=== PATIENT | female | born 1950 | race Caucasian/White ===

== ENCOUNTER 2018-03-15 10:15 | Emergency (ER) | payer OTHER, SELFPAY ==
[2018-03-15 10:20] VITALS: BP 149/78; PULSE 81; RESP 20; TEMP 36.4; O2SAT 98
[2018-03-15 10:25] VITALS: BP 142/82; PULSE 81; RESP 16; TEMP 36.8; O2SAT 96
--- NOTE | 2018-03-15 10:26 | DI.CT.S_ITS ---
PROCEDURE: CT FACIAL BONES WO CON INDICATIONS: Fall down stairs TECHNIQUE: Noncontrast 2.5 mm thick axial images acquired from the mandible through the frontal sinuses, with coronal and sagittal reformatting. For radiation dose reduction, the following was used: automated exposure control, adjustment of mA and/or kV according to patient size. COMPARISON: None. FINDINGS: Image quality: Excellent. Bones and teeth: Orbital rabago are intact. Sinus rabago show no fracture or deformity. The mildly displaced nasal bone fracture. Visualized portions of the mandible demonstrate no fractures or subluxation. Zygomatic arches are intact. Pterygoid plates are intact. Moderately displaced fracture of the odontoid process of C2. Mildly displaced fracture of the midline anterior arch of C1. Minimally displaced fracture of the right posterior C1 arch. Mildly displaced fracture of the left posterolateral C1 arch. Visualized portions of the skull base and auditory canals are intact. Sinuses: Paranasal sinuses are aerated, without fluid levels, mucosal thickening, or mucoceles. Mastoid air cells are aerated. Soft tissues: Edema surrounding the nasal bone fracture is present with surrounding soft tissue gas. No enlarged lymph nodes. No soft tissue lacerations or debris. Vascular: Visualized vascular structures appear normal in the absence of contrast. Bony vascular foramina and canals are intact. IMPRESSION: 1. Nasal bone fracture with surrounding soft tissue gas. 2. C1 and C2 fractures. 3. Findings discussed with Dr. Whitaker on 03.15.18 at 1106 hrs. Dictated by: Eddie Holder M.D. on 03/15/2018 at 11:00 Approved by: Eddie Holder M.D. on 03/15/2018 at 11:06
--- NOTE | 2018-03-15 10:26 | DI.CT.S_ITS ---
PROCEDURE: CT HEAD/BRAIN WO CON INDICATIONS: Fall down stairs. Head pain. TECHNIQUE: Noncontrast 4.5 mm thick angled axial sections acquired from the foramen magnum to the vertex, with coronal and sagittal reformats. For radiation dose reduction, the following was used: automated exposure control, adjustment of mA and/or kV according to patient size. COMPARISON: None. FINDINGS: Image quality: Excellent. CSF spaces: Basal cisterns are patent. No extra-axial fluid collections. The ventricles are symmetric in size and shape. Brain: No intracranial bleeds or masses. There is cerebral volume loss for age, with resultant ventricular and sulcal prominence. There are periventricular and deep white matter chronic small vessel ischemic changes. There is intracranial internal carotid artery atherosclerosis. Skull and face: Calvarium and visualized facial bones appear intact, without suspicious lesions. Fractures of the anterior, right, and left aspects of the C1 arch are present. Sinuses: Visualized sinuses and mastoids are clear. IMPRESSION: 1. No acute intracranial abnormality. 2. C1 fractures. 3. Findings discussed with on 03.15.18 at 1106 hrs. Dictated by: Eddie Holder M.D. on 03/15/2018 at 11:07 Approved by: Eddie Holder M.D. on 03/15/2018 at 11:08
--- NOTE | 2018-03-15 10:27 | DI.CT.S_ITS ---
PROCEDURE: CT CERVICAL SPINE WO CON INDICATIONS: Fall down stairs. TECHNIQUE: Noncontrast 3 mm thick sections acquired from the skull base to the T4 level. Sagittal and coronal reformats were then constructed. For radiation dose reduction, the following was used: automated exposure control, adjustment of mA and/or kV according to patient size. COMPARISON: None. FINDINGS: Image quality: Excellent. Bones: There is a moderately displaced fracture of the odontoid process of C2, which demonstrates mild posterior angulation. There is a mildly displaced fracture of the anterior midline C1 arch. There are mildly displaced fractures of the right and left posterolateral C1 arches. Multilevel disc space narrowing and facet hypertrophy are present. Multilevel endplate osteophytes are present. Ill-defined sclerosis within the medial right clavicle. Irregularity of the right anterior first rib is present. There is an exophytic sclerotic focus protruding medially and from the right anterolateral fourth rib measuring 13 mm. Soft tissues: Prevertebral soft tissues are normal in thickness. No paravertebral hematomas. No apical pneumothoraces. 43 mm diameter masslike density within the right upper lobe IMPRESSION: 1. C1 and C2 fractures as described above. Findings were discussed with Dr. Whitaker on 03.15.18 at 1106 hrs. 2. Right upper lobe pulmonary density, possibly indicating neoplasm. PET/CT examination is recommended for further assessment. 3. Bony sclerotic foci as described above, possibly indicating metastatic disease versus sequelae of prior injury versus radiation. Dictated by: Eddie Holder M.D. on 03/15/2018 at 11:08 Approved by: Eddie Holder M.D. on 03/15/2018 at 11:13
[2018-03-15 10:45] VITALS: BP 150/63; PULSE 83; RESP 18; O2SAT 94
--- NOTE | 2018-03-15 10:48 | ED.FALL ---
HPI - Fall General Chief Complaint: Trauma Stated Complaint: FELL,FACE INJURY Time Seen by Provider: 03/15/18 10:24 Source: family Mode of arrival: wheelchair History of Present Illness HPI Narrative: Patient is a 67-year-old female here in surrounded by family. She is complaining of neck pain. She was walking downstairs however she stopped and turned to look up the stairs she then slipped falling up the stairs falling forward hitting her nose. She has obvious laceration on her nose. There was no loss of consciousness. She is moving all of her extremities. She has not been vomiting. All but complaining of MD complaint: fall Related Data Allergies Allergy/AdvReac Type Severity Reaction Status Date / Time No Known Drug Allergies Allergy Verified 03/15/18 11:40 Review of Systems Review of Systems All systems reviewed & are unremarkable except as noted in HPI and below Constitutional Denies chills, Denies fever(s), Denies lethargy and Denies weakness Eyes Denies change in vision, Denies eye discharge, Denies irritation and Denies loss of vision ENT Ears, Nose, Mouth, and Throat: Reports facial pain, Reports epistaxis, Denies throat swelling and Denies tongue swelling Cardiovascular Denies chest pain, Denies irregular heart rhythm, Denies lightheadedness, Denies palpitations, Denies dyspnea, Denies dyspnea on exertion and Denies orthopnea Respiratory Denies cough, Denies dyspnea, Denies dyspnea on exertion and Denies wheezing Musculoskeletal Denies back pain, Denies muscle weakness, Denies numbness and Denies tingling Integumentary/Breasts Comments: +Laceration Neurologic Reports system reviewed and no additional complaints, except as docu, Denies loss of vision, Denies numbness, Denies tingling, Denies weakness and Denies other (LOC) Endocrine Denies palpitations Allergic/Immunologic Denies throat swelling, Denies tongue swelling and Denies wheezing Exam Initial Vital Signs Initial Vital Signs: Vital Signs Temperature 97.5 F L 03/15/18 10:20 Pulse Rate 81 03/15/18 10:20 Respiratory Rate 20 03/15/18 10:20 Blood Pressure 149/78 H 03/15/18 10:20 Pulse Oximetry 98 03/15/18 10:20 Const General: acute distress (in pain) and anxious HENMT Head: normal to inspection and normocephalic Nose: other (Nasal swelling, nasal laceration measuring 1 cm) Eyes General: appearance normal, both eyes and all related structures Pupils: PERRL EOM: EOM intact bilaterally Neck Neck: trachea midline and tender (midline. collar placed in ED) Resp Effort & Inspection: normal respiratory effort and able to speak in complete sentences Auscultation: clear to auscultation bilaterally Cardio Rate: regular rate Rhythm: regular rhythm Heart Sounds: no click, no gallops, murmur systolic and no rubs Pulses: normal peripheral pulses GI Inspection: non-distended Palpation: soft, no hepatosplenomegaly, No guarding, No pulsatile mass and No tender Auscultation: normal bowel sounds Back/Spine/Pelvis Back: normal to inspection Cervical Spine: collar present (in ED), cervical muscular tenderness (and midline tenderness), No step off deformity and cervical ROM abnormal Skin Lesions: no lesions Trauma: laceration (nose) Neuro General: alert, oriented x3, gait normal and no focal motor deficits Speech: speech normal Motor: muscle tone normal throughout and strength 5/5 throughout Sensory Exam: no sensory deficits noted Extrem General: full ROM, no clubbing, cyanosis or edema, no pedal edema and no calf tenderness Right upper extremity: normal to inspection Left upper extremity: normal to inspection Right lower extremity: normal to inspection Left lower extremity: normal to inspection [facility] Medical History Hypertension (Acute) Social History Smoking Status: Never smoker Procedures Laceration Repair Laceration 1: Site: face (Nose) Size (cm): 1 Description: linear Depth: simple, single layer Local Anesthetic: lidocaine 2% and with epi Amount of anesthesia used (mL): 3 Pre-repair: wound explored and irrigated extensively Skin layer closed with: nylon Size (cm): 5-0 Number of sutures: 2 Technique: simple, interrupted Course Orders Ordered: ED Orders 03/15/18 10:26 CT facial bones wo con Stat CT head/brain wo con Stat 03/15/18 10:27 CT cervical spine wo con Stat 03/15/18 11:55 Complete Blood Count AUTO DIFF Stat Comprehensive Metabolic Panel Stat Partial Thromboplastin Time Stat Prothrombin Time INR Stat Discontinued Medications Hydromorphone HCl (Dilaudid) 0.5 mg IV NOW ONE Stop: 03/15/18 13:05 Last Admin: 03/15/18 13:11 Dose: 0.5 mg Morphine Sulfate (Morphine) 2 mg IV NOW ONE Stop: 03/15/18 11:10 Last Admin: 03/15/18 11:41 Dose: 2 mg Morphine Sulfate (Morphine Sulfate) 2 mg IV NOW ONE Stop: 03/15/18 12:29 Last Admin: 03/15/18 12:28 Dose: 2 mg Ondansetron HCl (Zofran) 4 mg IV NOW ONE Stop: 03/15/18 11:38 Last Admin: 03/15/18 11:41 Dose: 4 mg Vital Signs - 8 hr 03/15/18 10:20 03/15/18 10:25 03/15/18 10:45 Temperature 97.5 F L 98.3 F Pulse Rate 81 81 83 Respiratory Rate 20 16 18 Blood Pressure 149/78 H Blood Pressure [Left Arm] 142/82 H 150/63 H Pulse Oximetry 98 96 94 03/15/18 11:05 03/15/18 12:08 03/15/18 12:38 Temperature Pulse Rate 77 81 81 Respiratory Rate 17 18 16 Blood Pressure Blood Pressure [Left Arm] 155/68 H 142/68 H 142/68 H Pulse Oximetry 100 97 95 MDM - Fall Medical Records Attestation: I reviewed the patient's medical records. Lab Data Result diagrams: 03/15/18 11:55 03/15/18 11:55 Lab Results 03/15/18 03/15/18 03/15/18 Range/Units 11:55 11:55 11:55 WBC 13.9 H (4.5-11.0) X10^3/uL RBC 4.69 (4.0-5.2) X10^6/uL Hgb 13.4 (12.0-16.0) g/dL Hct 40.6 (36-46) % MCV 86.5 (80-100) fL MCH 28.5 (26-34) PG MCHC 33.0 (30-36) % RDW 15.4 H (11.6-14.8) % Plt Count 304 (150-400) X10^3/uL Neut % (Auto) 86.9 H (50-75) % Lymph % (Auto) 8.5 L (25-40) % Lee % (Auto) 3.3 (3-14) % Eos % (Auto) 0.7 L (2-4) % Baso % (Auto) 0.6 (0-2) % Neut # (Auto) 55055 H (7543-0920) /uL PT 10.5 (10.1-12.7) SECONDS INR 1.0 (0.9-1.3) APTT 33 (26.4-36.2) SECONDS Sodium 139 (137-145) mmol/L Potassium 4.8 (3.4-5.1) mmol/L Chloride 101 (98-107) mmol/L Carbon Dioxide 28 (22-32) mmol/L BUN 21 H (7-17) mg/dL Creatinine 0.70 (0.52-1.04) mg/dL Estimated GFR > 60.0 (>60) mL/min BUN/Creatinine Ratio 30.0 H (6-22) Glucose 166 H (80-110) mg/dL Calcium 9.1 (8.4-10.2) mg/dL Total Bilirubin 0.7 (0.2-1.3) mg/dL AST 45 H (14-36) IU/L ALT 84 H (9-52) IU/L Alkaline Phosphatase 136 H (38-126) U/L Total Protein 7.5 (6.3-8.2) g/dL Albumin 4.1 (3.5-5.0) g/dL Globulin 3.4 (1.7-4.1) g/dL Albumin/Globulin Ratio 1.2 (1.0-2.8) Imaging Data CT scan - head: Radiologist's impression: PROCEDURE: CT HEAD/BRAIN WO CON INDICATIONS: Fall down stairs. Head pain. TECHNIQUE: Noncontrast 4.5 mm thick angled axial sections acquired from the foramen magnum to the vertex, with coronal and sagittal reformats. For radiation dose reduction, the following was used: automated exposure control, adjustment of mA and/or kV according to patient size. COMPARISON: None. FINDINGS: Image quality: Excellent. CSF spaces: Basal cisterns are patent. No extra-axial fluid collections. The ventricles are symmetric in size and shape. Brain: No intracranial bleeds or masses. There is cerebral volume loss for age, with resultant ventricular and sulcal prominence. There are periventricular and deep white matter chronic small vessel ischemic changes. There is intracranial internal carotid artery atherosclerosis. Skull and face: Calvarium and visualized facial bones appear intact, without suspicious lesions. Fractures of the anterior, right, and left aspects of the C1 arch are present. Sinuses: Visualized sinuses and mastoids are clear. IMPRESSION: 1. No acute intracranial abnormality. 2. C1 fractures. 3. Findings discussed with on 03.15.[address] cervical: Radiologist's impression: PROCEDURE: CT CERVICAL SPINE WO CON INDICATIONS: Fall down stairs. TECHNIQUE: Noncontrast 3 mm thick sections acquired from the skull base to the T4 level. Sagittal and coronal reformats were then constructed. For radiation dose reduction, the following was used: automated exposure control, adjustment of mA and/or kV according to patient size. COMPARISON: None. FINDINGS: Image quality: Excellent. Bones: There is a moderately displaced fracture of the odontoid process of C2, which demonstrates mild posterior angulation. There is a mildly displaced fracture of the anterior midline C1 arch. There are mildly displaced fractures of the right and left posterolateral C1 arches. Multilevel disc space narrowing and facet hypertrophy are present. Multilevel endplate osteophytes are present. Ill-defined sclerosis within the medial right clavicle. Irregularity of the right anterior first rib is present. There is an exophytic sclerotic focus protruding medially and from the right anterolateral fourth rib measuring 13 mm. Soft tissues: Prevertebral soft tissues are normal in thickness. No paravertebral hematomas. No apical pneumothoraces. 43 mm diameter masslike density within the right upper lobe IMPRESSION: 1. C1 and C2 fractures as described above. Findings were discussed with Dr. Whitaker on 03.15.18 at 1106 hrs. 2. Right upper lobe pulmonary density, possibly indicating neoplasm. PET/CT examination is recommended for further assessment. 3. Bony sclerotic foci as described above, possibly indicating metastatic disease versus sequelae of prior injury versus radiation. Dictated by: Eddie Holder M.D. on 03/15/2018 at 11:08 Approved by: Eddie Holder M.D. on 03/15/2018 at 11:13 CT face: Radiologist's impression: PROCEDURE: CT FACIAL BONES WO CON INDICATIONS: Fall down stairs TECHNIQUE: Noncontrast 2.5 mm thick axial images acquired from the mandible through the frontal sinuses, with coronal and sagittal reformatting. For radiation dose reduction, the following was used: automated exposure control, adjustment of mA and/or kV according to patient size. COMPARISON: None. FINDINGS: Image quality: Excellent. Bones and teeth: Orbital rabago are intact. Sinus rabago show no fracture or deformity. The mildly displaced nasal bone fracture. Visualized portions of the mandible demonstrate no fractures or subluxation. Zygomatic arches are intact. Pterygoid plates are intact. Moderately displaced fracture of the odontoid process of C2. Mildly displaced fracture of the midline anterior arch of C1. Minimally displaced fracture of the right posterior C1 arch. Mildly displaced fracture of the left posterolateral C1 arch. Visualized portions of the skull base and auditory canals are intact. Sinuses: Paranasal sinuses are aerated, without fluid levels, mucosal thickening, or mucoceles. Mastoid air cells are aerated. Soft tissues: Edema surrounding the nasal bone fracture is present with surrounding soft tissue gas. No enlarged lymph nodes. No soft tissue lacerations or debris. Vascular: Visualized vascular structures appear normal in the absence of contrast. Bony vascular foramina and canals are intact. IMPRESSION: 1. Nasal bone fracture with surrounding soft tissue gas. 2. C1 and C2 fractures. 3. Findings discussed with Dr. Whitaker on 03.15.18 at 1106 hrs MDM Narrative Medical decision making narrative: CT results discussed with family. Patient is placed in an [place] collar using C-spine technique. Have called and spoken with the ER doctor at [place] , was happily accepts the patient. Family aware on patient may not all require surgery. However she will be transported with a spine surgeon can see and evaluate her. Discharge Plan Departure Patient Disposition: [facility] Clinical Impression: C1 cervical fracture, C2 cervical fracture, Fracture of nasal bone Discharge Date/Time: 03/15/18 13:34 Interventions: ED Discharge Assessment Last Done: 03/15/18 13:33
[2018-03-15 11:05] VITALS: BP 155/68; PULSE 77; RESP 17; O2SAT 100
[2018-03-15] MEDS: ONDANSETRON 4 MG/2 ML INJ IV (11:41)
[2018-03-15] MEDS: MORPHINE 2 MG/ML INJ IV (11:41)
[2018-03-15 12:02] LABS: Add Manual Diff / Slide Review NO; Basophils Percent Auto 0.6 % (0-2); Eosinophils Percent Auto 0.7 % (2-4); Hematocrit 40.6 % (36-46); Hemoglobin 13.4 g/dL (12.0-16.0); Lymphocytes Percent Auto 8.5 % (25-40); Mean Corpuscular Hemoglobin 28.5 PG (26-34); Mean Corpuscular Volume 86.5 fL (80-100); Monocytes Percent Auto 3.3 % (3-14); Neutrophils Absolute Auto 12000 /uL (3000-5900); Neutrophils Percent Auto 86.9 % (50-75); Platelet Count 304 X10^3/uL (150-400); Red Blood Cell Count 4.69 X10^6/uL (4.0-5.2); Red Cell Distribution Width 15.4 % (11.6-14.8); White Blood Cell Count 13.9 X10^3/uL (4.5-11.0)
[2018-03-15 12:08] VITALS: BP 142/68; PULSE 81; RESP 18; O2SAT 97
[2018-03-15 12:11] LABS: Prothrombin Time 10.5 SECONDS (10.1-12.7)
[2018-03-15 12:14] LABS: PTT Partial Thromboplastin Tim 33 SECONDS (26.4-36.2)
[2018-03-15 12:15] LABS: Alanine Aminotransferase 84 IU/L (9-52); Albumin 4.1 g/dL (3.5-5.0); Albumin Globulin Ratio 1.2 (1.0-2.8); Alkaline Phosphatase 136 U/L (38-126); Aspartate Aminotransferase 45 IU/L (14-36); Bilirubin Total 0.7 mg/dL (0.2-1.3); Blood Urea Nitrogen 21 mg/dL (7-17); Calcium 9.1 mg/dL (8.4-10.2); Carbon Dioxide 28 mmol/L (22-32); Chloride 101 mmol/L (98-107); Estimated Glomerular Filt Rate > 60.0 mL/min (>60); Globulin 3.4 g/dL (1.7-4.1); Glucose 166 mg/dL (80-110); HEMOLYSIS < 15 (0-50); Potassium 4.8 mmol/L (3.4-5.1); Sodium 139 mmol/L (137-145); Total Protein 7.5 g/dL (6.3-8.2)
[2018-03-15] MEDS: MORPHINE 5 MG/ML INJ 2 MG IV (12:28)
[2018-03-15 12:38] VITALS: BP 142/68; PULSE 81; RESP 16; O2SAT 95
[2018-03-15] MEDS: HYDROMORPHONE 0.5 MG INJ IV (13:11)
== END 2018-03-15 13:34 | disposition short-term general hospital (02) ==
PROVIDERS: Emergency Provider Emergency Medicine
DX: S12.000A Unspecified displaced fracture of first cervical vertebra, initial encounter for closed fracture (principal); S12.100A Unspecified displaced fracture of second cervical vertebra, initial encounter for closed fracture; S02.2XXA Fracture of nasal bones, initial encounter for closed fracture; W10.9XXA Fall (on) (from) unspecified stairs and steps, initial encounter
CPT/HCPCS: 12011; 36415; 36591; 70450; 70486; 72125; 80053; 85025; 85610; 85730; 96374; 96375; 96376; 99283; 99284; 99285; J1170; J2270; J2405